=== PATIENT | female | born 1990 | race Caucasian/White ===

== ENCOUNTER 2021-03-26 13:51 | Emergency (ER) | payer OTHER, SELFPAY ==
[2021-03-26 14:19] VITALS: BP 131/85; PULSE 80; RESP 18; TEMP 36.6; O2SAT 100
[2021-03-26] MEDS: KETOROLAC (*BKC) 60 MG/2 ML VIAL IM (14:45)
[2021-03-26] MEDS: HYDROcodone/acetaminophen (*CRX) 7.5-325 MG TABLET 1 TAB PO (14:46)
[2021-03-26] MEDS: diazePAM (*CRX) 5 MG TABLET 2.5 MG PO (14:46)
--- NOTE | 2021-03-26 15:16 | ED.GENADULT ---
HPI - General Adult General Chief complaint: Neck Pain/Injury <Deyvi Orlando PA-C - Last Filed: 03/26/21 15:23> Stated complaint: neck pain <Deyvi Orlando PA-C - Last Filed: 03/26/21 15:23> Time Seen by Provider: 03/26/21 14:27 <Deyvi Orlando PA-C - Last Filed: 03/26/21 15:23> Source: patient and RN notes reviewed <Deyvi Orlando PA-C - Last Filed: 03/26/21 15:23> Mode of arrival: ambulatory <Deyvi Orlando PA-C - Last Filed: 03/26/21 15:23> Limitations: no limitations <Deyvi Orlando PA-C - Last Filed: 03/26/21 15:23> History of Present Illness HPI narrative: Patient is a 30-year-old female who presents to emergency department for evaluation of mid upper thoracic back pain that does not radiate is worse with activity or movement she denies any injury or trauma radicular symptoms or paresthesias woke with the pain this morning does not take anything for symptoms presents nondistressed. <Deyvi Orlando PA-C - Last Filed: 03/26/21 15:23> Related Data Allergies/adverse reactions: Allergies Allergy/AdvReac Type Severity Reaction Status Date / Time No Known Allergies Allergy Verified 03/26/21 14:32 <Deyvi Orlando PA-C - Last Filed: 03/26/21 15:23> Review of Systems Review of Systems: All systems reviewed & are unremarkable except as noted in HPI and below <Deyvi Orlando PA-C - Last Filed: 03/26/21 15:23> [facility] Social History Social History: Social History (Updated 03/26/21 @ 15:18 by Deyvi Orlando PA-C) Smoking status: Never smoker <Deyvi Orlando PA-C - Last Filed: 03/26/21 15:23> Exam Narrative: GENERAL: Well-appearing, well-nourished, uncomfortable and in no acute distress. HEAD: Normocephalic, atraumatic. EYES: PERRLA and EOMI. ENT: Nares clear, no rhinorrhea or epistaxis. Mucous membranes moist. NECK: Supple. No adenopathy or masses. CHEST: Clear to auscultation. No respiratory distress. No wheezes rales or rhonchi HEART: Regular rate and rhythm. No murmur heard. Normal peripheral pulses. EXTREMITIES: Normal range of motion. No edema. Midline thoracic tenderness in the upper segments of the thoracic spine there is no cervical tenderness no deformities noted SKIN: Warm, dry, no rash. NEURO: No focal deficits. Alert and oriented x3. Cranial nerves II through XII grossly intact. Normal speech and gait. Motor and sensory intact and symmetrical in the extremities PSYCH: Normal mood and affect. 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 given medications in the emergency department felt appropriate for outpatient reevaluation given reasons to return ABCs and vital signs intact and stable <RACHELLE Galindo Last Filed: 03/26/21 15:23> Vital Signs Vital signs: Vital Signs Temperature 98 F 03/26/21 14:19 Pulse Rate 80 03/26/21 14:19 Respiratory Rate 18 03/26/21 14:19 Blood Pressure 131/85 03/26/21 14:19 Pulse Oximetry 100 03/26/21 14:19 Temperature 98 F 03/26/21 14:19 Pulse Rate 80 03/26/21 14:19 Respiratory Rate 18 03/26/21 14:19 Blood Pressure 131/85 03/26/21 14:19 Pulse Oximetry 100 03/26/21 14:19 <RACHELLE Galindo Last Filed: 03/26/21 15:23> Medical Decision Making MDM Narrative Medical decision making narrative: Patients injury or pain is consistent with musculoskeletal etiology. No signs of neurological or vascular compromise or focal neurologic deficits on exam. Compartments and tisues are soft without signs of compartment syndrome. Pain is felt appropriate for further evaluation on an outpatient basis. <RACHELLE Galindo Last Filed: 03/26/21 15:23> Vital Signs Vital Signs: Vital Signs Temperature 98 F 03/26/21 14:19 Pulse Rate 80 03/26/21 14:19 Respiratory Rate 18 03/26/21 1
== END 2021-03-26 15:36 | disposition home or self-care (01) ==
PROVIDERS: Emergency Provider General Practice
DX: G24.3 Spasmodic torticollis (principal)
CPT/HCPCS: 96372; 99283; A9270; J1885

== ENCOUNTER 2021-03-26 17:17 | Emergency (ER) | payer OTHER, SELFPAY ==
--- NOTE | 2021-03-26 17:36 | PC.NURSE ---
pt feeling better and wants to go home. no distress or c/o. 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
== END 2021-03-26 17:36 | disposition left against medical advice (07) ==
DX: Z53.21 Procedure and treatment not carried out due to patient leaving prior to being seen by health care provider (principal)
CPT/HCPCS: 99199

== ENCOUNTER 2021-08-07 14:24 | Emergency (ER) | payer OTHER, SELFPAY ==
--- NOTE | 2021-08-07 15:04 | ED.GENADULT ---
HPI - General Adult General Chief complaint: Upper Respiratory Infection Stated complaint: Rash in mouth Source: patient Mode of arrival: ambulatory Limitations: no limitations History of Present Illness HPI narrative: Patient presents for evaluation of abnormal appearance to the hard palate and tissue beneath her tongue since yesterday. She states symptoms started after she consumed a carbonated green tea. She denies any associated pain. No hx of similar symptoms. She is in a new sexual relationship and they had their first sexual encounter on 07/30/21. She indicates that the encounter included kissing and protected receptive vaginal intercourse. She did not engage in any oral intercourse. 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 She has not tried any therapies to assist with her symptoms. She has felt increasingly fatigued as of late but states she has not been sleeping well and has been stressed while she is looking to purchase a home. No sore throat, otalgia, hearing loss, tinnitus, fever, chills, nausea or vomiting. No additional complaints or concerns. Related Data Allergies Allergy/AdvReac Type Severity Reaction Status Date / Time No Known Allergies Allergy Verified 08/07/21 14:32 Review of Systems Review of Systems: CONSTITUTIONAL: Denies fever, chills, or sweats. EYES: Denies visual changes, redness, or discharge. ENT: Reports abnormal appearance of oral mucosa. Denies rhinorrhea, congestion, sore throat, or otalgia. CARDIOVASCULAR: Denies chest pain, palpitations, or edema. RESPIRATORY: Denies cough or dyspnea. GASTROINTESTINAL: Denies abdominal pain, nausea, vomiting, or diarrhea. GENITOURINARY: Denies dysuria or hematuria. SKIN: Denies rash or itching. MUSCULOSKELETAL: Denies back pain, joint pain, or myalgia. NEUROLOGIC: Denies headache, numbness, dizziness, or weakness. PSYCHIATRIC: Denies anxiety or depression. [facility] Past Medical History Medical History History of ectopic No pertinent past medical history Family History Family History Mother No pertinent family history Social History Social History Smoking status: Never smoker Substance use: never Living arrangements: with family Gender identity (if verbalized by the patient): Female Sexual Orientation (if Verbalized by the Patient): Straight or Heterosexual Spiritual care concerns: No Exam Narrative: GENERAL: Well-appearing, well-nourished, and in no acute distress. HEAD: Normocephalic, atraumatic. EYES: PERRLA and EOMI. ENT: Nares clear, no rhinorrhea or epistaxis. Mucous membranes moist. Oropharynx without tonsillar hypertrophy exudate or other lesions. Erythema and patchy distribution to hard palate and mucosa surrounding the tongue that has a petechiae appearance. Bilateral TMs pearly ramos nonbulging NECK: Supple. No adenopathy or masses. No carotid bruits or JVD CHEST: Clear to auscultation. No respiratory distress. No wheezes rales or rhonchi HEART: Regular rate and rhythm. No murmur heard. Normal peripheral pulses. ABDOMEN: Soft, nontender, nondistended, normal active bowel sounds. EXTREMITIES: Normal range of motion. No edema. SKIN: Warm, dry, no rash. NEURO: No focal deficits. Alert and oriented x3. PSYCH: Normal mood and affect. Course Course Emergency Course: This is a 30-year-old female who presented with abnormal appearance of oral mucosa. Stearns was obtained due to reported fatigue and was negative. Strep negative. Declined Covid swab. HSV culture obtained. Will DC with triamcinolone dental paste. Advised not to use this until HSV swab results as negative as steroids could exacerbate symptoms. If she has persistent symptoms, she should follow up w
== END 2021-08-07 15:37 | disposition home or self-care (01) ==
PROVIDERS: Emergency Provider Nurse Practitioner
DX: K13.70 Unspecified lesions of oral mucosa (principal)
CPT/HCPCS: 36416; 86308; 87081; 87255; 87880; 99213; G0463

== ENCOUNTER 2022-01-02 09:36 | Emergency (ER) | payer OTHER, SELFPAY ==
[2022-01-02 09:49] VITALS: BP 122/71; PULSE 97; RESP 16; TEMP 36.6; O2SAT 100
--- NOTE | 2022-01-02 10:09 | ECG_ITS ---
Measurements Intervals [place] Rate: 70 P: 19 ME: 153 QRS: 65 QRSD: 105 T: 36 QT: 365 QTc: 394 Interpretive Statements SINUS RHYTHM WITH SINUS ARRHYTHMIA INCOMPLETE RIGHT BUNDLE BRANCH BLOCK NONSPECIFIC T-WAVE ABNORMALITY Electronically Signed On 01-04-2022 11:28:56 CDT by Cliff Serrano M.D.
--- NOTE | 2022-01-02 10:19 | ED.GENADULT ---
HPI - General Adult General Chief complaint: Unspecified Stated complaint: unspecified Time Seen by Provider: 01/02/22 09:38 Source: patient Mode of arrival: ambulatory Limitations: no limitations History of Present Illness HPI narrative: Ms. Piña is a 31-year-old female patient presenting to the clinic today with complaints of palpitations and mild left ear pressure. She reports that she went to work this morning and around 915 this morning she developed some light chest pressure and palpitations to the right side of her chest that was very brief. She reports that the symptoms have resolved at this time but she came in to be evaluated. She has a history of anxiety and is under a lot of stress at this current time. She denies any shortness of breath or chest pain currently. States that she had mild lightheadedness however that has also resolved. She has not taking any new medications. Related Data Home Medications Medication Instructions Recorded Confirmed No Home Medications 01/02/22 01/02/22 Allergies Allergy/AdvReac Type Severity Reaction Status Date / Time No Known Allergies Allergy Verified 08/07/21 14:32 Review of Systems Review of Systems: Pertinent positives per HPI. Patient denies any fever, chills, rash, headache, visual changes, cough, runny nose, sore throat, shortness of breath, nausea, vomiting, diarrhea, constipation, abdominal pain, or any urinary issues. PMFSH Past Medical History Medical History History of ectopic No pertinent past medical history Family History Family History Mother No pertinent family history Social History Social History Smoking status: Never smoker Substance use: never Gender identity (if verbalized by the patient): Female Sexual Orientation (if Verbalized by the Patient): Straight or Heterosexual Spiritual care concerns: No Comments At the time of my signature, I reviewed and agree with the nursing past medical, surgical, social, and family history. There is no relevant family history pertinent to the patient complaint. Exam Narrative: General: Well-developed, well nourished, in no apparent distress Head: Normocephalic, atraumatic Eyes: Pupils equally round and reactive to light bilaterally, EOM intact, sclera and conjunctive clear, no discharge, lids normal Ears: TMs intact and clear, right ear canal clear, left ear canal with cerumen impaction, no drainage, grossly hearing normal. Nose: Nares patent, no discharge, no inflammation, no sinus tenderness. Mouth: Oropharynx without lesions or masses, good dentition, MMM. Neck: Supple, trachea midline, no enlargement of anterior or posterior cervical nodes, no thyroid masses or goiter palpable, no carotid bruits or thrills Cardio: Regular rate and rhythm, s1 and s2 normal, no murmur appreciated. Resp: Clear to auscultation bilaterally anteriorly and posteriorly, no rhonchi, rales, wheezing or rubs Extremities: No deformity, no edema, no cyanosis, capillary refill less than 2 seconds, peripheral pulses palpable and strong. Integumentary: [place], warm, and dry, intact without lesion, no rashes. Course Course Emergency Course: Portions of this record may have been created with voice recognition software. Level of Care: Express Care Visit Vital Signs Vital signs: Vital Signs Temperature 36.6 C 01/02/22 09:49 Pulse Rate 97 01/02/22 09:49 Respiratory Rate 16 01/02/22 09:49 Blood Pressure 122/71 01/02/22 09:49 Pulse Oximetry 100 01/02/22 09:49 Oxygen Delivery Room Air 01/02/22 09:49 Temperature 36.6 C 01/02/22 09:49 Pulse Rate 97 01/02/22 09:49 Respiratory Rate 16 01/02/22 09:49 Blood Pressure 122/71 01/02/22 09:49 Pulse Oximetry 100 01/02/22 09:49 Oxygen Delivery R
--- NOTE | 2022-01-02 10:40 | PC.NURSE ---
1030 nurse special in to do ear irrigation
== END 2022-01-02 11:22 | disposition home or self-care (01) ==
PROVIDERS: Emergency Provider Nurse Practitioner Family
DX: R00.2 Palpitations (principal); H61.22 Impacted cerumen, left ear
CPT/HCPCS: 69210; 93005; 99213; G0463

== ENCOUNTER 2022-01-25 08:45 | Emergency (ER) | payer OTHER, SELFPAY ==
[2022-01-25 08:52] VITALS: BP 120/82; PULSE 94; RESP 16; TEMP 36.8; O2SAT 100
--- NOTE | 2022-01-25 09:02 | ED.EAR ---
HPI - Ear Problem General Chief complaint: Ear Stated complaint: EARACHE Time Seen by Provider: 01/25/22 09:03 Source: patient, RN notes reviewed and old records reviewed Mode of arrival: ambulatory Limitations: no limitations History of Present Illness HPI Narrative: 31-year-old female who presents to [facility] with pain and irritation to her left ear.. Patient reports that her left ear has been itching for the past 2 days and she thinks that she scratched the inside of her ear with pain noted to her left ear this morning. Patient reports that she has hearing loss to her left ear and she wears a hearing aide to that ear. Patient reports that she had left ear irrigation for cerumen impaction on the 02 of January and they said there was a little irritation in ear canal at that time. Patient reports that she has some discomfort from her ear down into her neck. Patient denies any fevers chills or sweats, no nasal discharge or any other ill symptoms. MD Complaint: ear pain Location: left ear Severity: mild Discharge from ear: Reports no Related Data Allergies Allergy/AdvReac Type Severity Reaction Status Date / Time No Known Allergies Allergy Verified 08/07/21 14:32 Review of Systems Review of Systems: CONSTITUTIONAL: Denies fever, chills, or sweats. EYES: Denies visual changes, redness, or discharge. ENT: Denies rhinorrhea, congestion, sore throat,Positive for left ear otalgia. CARDIOVASCULAR: Denies chest pain, palpitations, or edema. RESPIRATORY: Denies cough or dyspnea. GASTROINTESTINAL: Denies abdominal pain, nausea, vomiting, or diarrhea. GENITOURINARY: Denies dysuria or hematuria. SKIN: Denies rash or itching. MUSCULOSKELETAL: Denies back pain, joint pain, or myalgia. NEUROLOGIC: Denies headache, numbness, or weakness. PSYCHIATRIC: Denies anxiety or depression. All systems reviewed & are unremarkable except as noted in HPI and below PMFSH Past Medical History Medical History (Updated 01/25/22 @ 10:48 by Krystle Shultz NP) History of ectopic No pertinent past medical history Surgical History Surgical History (Updated 01/25/22 @ 10:48 by Krystle Shultz NP) History of salpingectomy right ectopic Previous section Family History Family History Mother No pertinent family history Social History Social History Smoking status: Never smoker Substance use: never Gender identity (if verbalized by the patient): Female Sexual Orientation (if Verbalized by the Patient): Straight or Heterosexual Spiritual care concerns: No Comments At time of signature, agree with nursing past medical, surgical, social and family history. There is no relevant family history pertinent to the presenting complaint Exam Narrative: GENERAL: Well-appearing, well-nourished, and in no acute distress. HEAD: Normocephalic, atraumatic. EYES: PERRLA and EOMI. ENT: Nares clear, no rhinorrhea or epistaxis. Mucous membranes moist.TM's pearly white with good light reflex, left ear canal is reddened with some excoriation and swelling no drainage noted, throat pink with no lesions or exudates or tonsil swelling. NECK: Supple.no lymphadenopathy CHEST: Clear to auscultation. No respiratory distress.SAO2 100% on room air HEART: Regular rate and rhythm. No murmur heard. Normal peripheral pulses. ABDOMEN: Soft, nontender, nondistended, normal active bowel sounds. EXTREMITIES: Normal range of motion. No edema. SKIN: Warm, dry, no rash. NEURO: No focal deficits. Alert and oriented x3. Course Course Level of Care: Express Care Visit Vital Signs Vital signs: Vital Signs Temperature 36.8 C 01/25/22 08:52 Pulse Rate 94 01/25/22 08:52 Respiratory Rate 16 01/25/22 08:52 Blood Pressure 120/82 01/25/22 08:52 Pulse Oximetry 100 01/25/22 08:52 Temperature 36.8 C 01/25/22 08:52 Pu
== END 2022-01-25 09:15 | disposition home or self-care (01) ==
PROVIDERS: Emergency Provider Registered Nurse; PCP Family Medicine
DX: H60.92 Unspecified otitis externa, left ear (principal)
CPT/HCPCS: 99213; G0463

== ENCOUNTER 2022-07-25 11:54 | Emergency (ER) | payer OTHER, SELFPAY ==
[2022-07-25 12:03] VITALS: BP 121/74; PULSE 89; RESP 16; TEMP 36.6; O2SAT 100
--- NOTE | 2022-07-25 12:09 | ED.EAR ---
HPI - Ear Problem General Chief complaint: Ear Stated complaint: itchy ears Time Seen by Provider: 07/25/22 12:10 Source: patient and RN notes reviewed Mode of arrival: ambulatory Limitations: no limitations History of Present Illness HPI Narrative: 31-year-old female presents with concern for bilateral ear itchiness. Reports she tried debrox without relief. She denies pain, purulent drainage. She denies decreased hearing. MD Complaint: other (Ear itchiness) Related Data Home Medications Medication Instructions Recorded Confirmed No Home Medications 07/25/22 07/25/22 Allergies Allergy/AdvReac Type Severity Reaction Status Date / Time No Known Allergies Allergy Verified 07/25/22 12:01 Review of Systems Review of Systems: CONSTITUTIONAL: Denies malaise, chills, sweats, or fever. EYES: Denies visual changes, redness, or discharge. ENT: Denies rhinorrhea, congestion, sinus pain, and sore throat. Reports ear itchiness without pain RESPIRATORY: Denies cough. Denies dyspnea. SKIN: Denies rash MUSCULOSKELETAL: Denies myalgia. NEUROLOGIC: Denies headache. All systems reviewed & are unremarkable except as noted in HPI and below PMFSH Past Medical History Medical History (Updated 07/25/22 @ 12:24 by Eduarda Monte NP) History of ectopic No pertinent past medical history Surgical History Surgical History (Updated 01/25/22 @ 10:48 by Krystle Shultz NP) History of salpingectomy right ectopic Previous section Family History Family History Mother No pertinent family history Social History Social History Smoking status: Never smoker Substance use: never Living arrangements: with family Gender identity (if verbalized by the patient): Female Sexual Orientation (if Verbalized by the Patient): Straight or Heterosexual Spiritual care concerns: No Comments At time of signature, agree with nursing past medical, surgical, social and family history. There is no relevant family history pertinent to the presenting complaint Exam Narrative: GENERAL: Well-appearing, well-nourished, and in no acute distress. HEAD: Normocephalic EYES: PERRLA, conjunctivae clear ENT: Nares clear, no discharge. Mucous membranes moist. TM pearly ramos with sharp light reflex bilaterally, excessive cerumen noted to the right EAC; no EAC abnormality or tragal tenderness. Oropharynx not erythematous without lesions. Tonsils not enlarged and without exudate, no drooling, no hoarseness, no trismus, uvula midline. NECK: Supple. No lymphadenopathy CHEST: Clear to auscultation, breath sounds equal. No wheezing, rhonchi, rales, or stridor. No respiratory distress, speaks in full sentences. HEART: Regular rate and rhythm. No murmur heard. SKIN: Warm, dry, no rash. NEURO: Alert and oriented x3. PSYCH: Normal mood and affect Course Course Emergency Course: Patient is aware of diagnosis, understands and agrees to treatment plan. Anticipatory guidance given. Patient agrees to follow-up as directed and is aware of reasons to seek care at the emergency department. Portions of this record may have been created with voice recognition software Level of Care: Express Care Visit Vital Signs Vital signs: Vital Signs Temperature 97.9 F 07/25/22 12:03 Pulse Rate 89 07/25/22 12:03 Respiratory Rate 16 07/25/22 12:03 Blood Pressure 121/74 07/25/22 12:03 Pulse Oximetry 100 07/25/22 12:03 Temperature 97.9 F 07/25/22 12:03 Pulse Rate 89 07/25/22 12:03 Respiratory Rate 16 07/25/22 12:03 Blood Pressure 121/74 07/25/22 12:03 Pulse Oximetry 100 07/25/22 12:03 Reviewed. Procedures Ear Wax Removal Right Ear: Ear Wax Removal Date: 07/25/22 Ear Wax Removal Time: 12:15 Results: Re-examined: cerumen removed completely TM Examination: TM(s) in
== END 2022-07-25 12:27 | disposition home or self-care (01) ==
PROVIDERS: Emergency Provider Nurse Practitioner
DX: H93.8X3 Other specified disorders of ear, bilateral (principal); H61.21 Impacted cerumen, right ear
CPT/HCPCS: 69210; 99212; G0463

== ENCOUNTER 2022-09-13 10:55 | Emergency (ER) | payer OTHER, SELFPAY ==
--- NOTE | 2022-09-13 11:01 | ED.URI ---
HPI - URI/Sore Throat General Chief Complaint: Upper Respiratory Infection Stated Complaint: lt ear pain, sore throat,sinus congestion Time Seen by Provider: 09/13/22 11:29 Source: patient and RN notes reviewed Mode of arrival: ambulatory Limitations: no limitations History of Present Illness HPI Narrative: 31-year-old female presents concern for 2 day history of left ear pain, sore throat, sinus congestion. She denies fever, aches, chills, sweats, cough. Denies taking any medications for her symptoms MD elicited complaint: sore throat and rhinorrhea Related Data Allergies Allergy/AdvReac Type Severity Reaction Status Date / Time No Known Allergies Allergy Verified 09/13/22 11:14 Review of Systems Review of Systems: CONSTITUTIONAL: Denies malaise, chills, sweats, or fever. EYES: Denies visual changes, redness, or discharge. ENT: Reports rhinorrhea, congestion, otalgia and sore throat. CARDIOVASCULAR: Denies chest pain, palpitations, or edema. RESPIRATORY: Denies cough. Denies dyspnea. GASTROINTESTINAL: Denies abdominal pain, nausea, vomiting, diarrhea SKIN: Denies rash or itching. MUSCULOSKELETAL: Denies myalgia. NEUROLOGIC: Denies headache. All systems reviewed & are unremarkable except as noted in HPI and below PMFSH Past Medical History Medical History (Updated 09/13/22 @ 11:49 by Eduarda Monte NP) History of ectopic No pertinent past medical history Surgical History Surgical History (Updated 01/25/22 @ 10:48 by Krystle Shultz NP) History of salpingectomy right ectopic Previous section Family History Family History Mother No pertinent family history Social History Social History Smoking status: Never smoker Substance use: never Living arrangements: with family Gender identity (if verbalized by the patient): Female Sexual Orientation (if Verbalized by the Patient): Straight or Heterosexual Spiritual care concerns: No Comments At time of signature, agree with nursing past medical, surgical, social and family history. There is no relevant family history pertinent to the presenting complaint Exam Narrative: GENERAL: Well-appearing, well-nourished, and in no acute distress. HEAD: Normocephalic EYES: PERRLA, conjunctivae clear ENT: Nares clear, clear discharge. Mucous membranes moist. TM pearly ramos with dull light reflex bilaterally; no tragal tenderness. Oropharynx not erythematous without lesions. Tonsils not enlarged and without exudate, no drooling, no hoarseness, no trismus, uvula midline. NECK: Supple. No lymphadenopathy CHEST: Clear to auscultation, breath sounds equal. No wheezing, rhonchi, rales, or stridor. No respiratory distress, speaks in full sentences. HEART: Regular rate and rhythm. No murmur heard. SKIN: Warm, dry, no rash. NEURO: Alert and oriented x3. PSYCH: Normal mood and affect Course Course Emergency Course: Patient is aware of diagnosis, understands and agrees to treatment plan. Anticipatory guidance given. Patient agrees to follow-up as directed and is aware of reasons to seek care at the emergency department. Portions of this record may have been created with voice recognition software Level of Care: Express Care Visit Vital Signs Vital signs: Reviewed. Patient has been instructed to follow up with her primary care provider within the next week regarding her elevated blood pressure today. MDM - URI/Sore Throat MDM Narrative Medical decision making narrative: Differential diagnosis considered: Sheehan virus, strep pharyngitis, allergic rhinitis, upper respiratory tract infection, sinusitis, rhinosinusitis, nasopharyngitis. viral pharyngitis, otitis media, otitis externa, pneumonia, bronchitis, viral cough syndrome, viral syndrome, and influenza. Exam findings show no acute concerns or changes; patient is non-toxic ap
[2022-09-13 11:11] VITALS: BP 125/87; PULSE 112; RESP 16; TEMP 36.9; O2SAT 100
== END 2022-09-13 11:54 | disposition home or self-care (01) ==
PROVIDERS: Emergency Provider Nurse Practitioner; PCP Family Medicine
DX: J30.9 Allergic rhinitis, unspecified (principal); H69.93 Unspecified Eustachian tube disorder, bilateral
CPT/HCPCS: 87081; 87880; 99213; G0463

== ENCOUNTER 2022-10-01 15:37 | Emergency (ER) | payer OTHER, SELFPAY ==
[2022-10-01 15:50] VITALS: BP 126/85; PULSE 113; RESP 18; TEMP 36.5; O2SAT 100
--- NOTE | 2022-10-01 16:00 | ED.FEMALEGU ---
HPI - Female Genitourinary General Chief complaint: Urogenital-Female Stated complaint: urinary Time Seen by Provider: 10/01/22 16:00 Source: patient, family, RN notes reviewed and old records reviewed Mode of arrival: ambulatory Limitations: no limitations History of Present Illness HPI Narrative: 31-year-old who [facility] with complaints pain after urinating starting this morning with some pelvic pain. Patient reports she has frequency, urgency with some pinkish tinge to her urine. she states she is suppose to start her menses either tomorrow or day after.. Patient reports no fevers, chills or sweats, denies any low back pain. Patient reports that they are leaving for [place] tomorrow and is concerned about travel with UTI. Patient reports that she drinks a lot of water daily and drinks a couple cups of coffee, no soda. Patient denies any vaginal discharge or any concern for STD exposure. MD elicited complaint: UTI Onset (ago): day(s) (today at 1000) Location of symptoms: urethra and other (pelvic) Severity scale (1-10): 2 Related Data Allergies Allergy/AdvReac Type Severity Reaction Status Date / Time No Known Allergies Allergy Verified 10/01/22 15:56 Review of Systems Review of Systems: CONSTITUTIONAL: Denies fever, chills, or sweats. CARDIOVASCULAR: Denies chest pain, palpitations, or edema. RESPIRATORY: Denies cough or dyspnea. GASTROINTESTINAL: Denies abdominal pain, nausea, vomiting, or diarrhea. GENITOURINARY: Reports dysuria, frequency, urgency. Denies flank pain positive pink tinged urine SKIN: Denies rash or itching. MUSCULOSKELETAL: Denies back pain or myalgia. Denies CVA tenderness NEUROLOGIC: Denies headache All systems reviewed & are unremarkable except as noted in HPI and below PMFSH Past Medical History Medical History (Updated 10/01/22 @ 16:30 by Krystle Shultz NP) Anxiety History of ectopic No pertinent past medical history Surgical History Surgical History (Updated 01/25/22 @ 10:48 by Krystle Shultz NP) History of salpingectomy right ectopic Previous section Family History Family History Mother No pertinent family history Social History Social History Smoking status: Never smoker Substance use: never Living arrangements: with family Gender identity (if verbalized by the patient): Female Sexual Orientation (if Verbalized by the Patient): Straight or Heterosexual Spiritual care concerns: No Comments At time of signature, agree with nursing past medical, surgical, social and family history. There is no relevant family history pertinent to the presenting complaint Exam Narrative: GENERAL: Well-appearing, well-nourished, and in no acute distress. HEAD: Normocephalic, atraumatic. NECK: Supple. no lymphadenopathy CHEST: Clear to auscultation. No respiratory distress. SAO2 100% on room air HEART: Regular rate and rhythm. No murmur heard. Normal peripheral pulses. ABDOMEN: Soft, nontender, nondistended, normal active bowel sounds. No CVA tenderness EXTREMITIES: Normal range of motion. No edema. SKIN: Warm, dry, no rash. NEURO: No focal deficits. Alert and oriented x3. Course Course Emergency Course: Patient is aware of diagnosis, understands and agrees to treatment plan.? Anticipatory guidance given.? Patient agrees to follow-up as directed and is aware of reasons to seek care at the emergency department. Portions of this record may have been created with voice recognition software Level of Care: [facility] Visit MDM - Female Genitourinary MDM Narrative Medical decision making narrative: Exam findings and UA show no acute concerns or changes; patient is non-toxic appearing and is in no distress.? Patient is appropriate for outpatient treatment and follow-up. Differential Diagnosis Differential
== END 2022-10-01 16:30 | disposition home or self-care (01) ==
PROVIDERS: Emergency Provider Registered Nurse; PCP Family Medicine
DX: N39.0 Urinary tract infection, site not specified (principal)
CPT/HCPCS: 81003; 81025; 87086; 99213; G0463

== ENCOUNTER 2023-07-01 13:32 | Emergency (ER) | payer OTHER, SELFPAY ==
[2023-07-01 13:46] VITALS: BP 113/80; PULSE 104; RESP 16; TEMP 37.1; O2SAT 100
[2023-07-01 13:48] VITALS: BP 113/80; PULSE 104; RESP 16; TEMP 37.1; O2SAT 100
--- NOTE | 2023-07-01 14:04 | ED.EAR ---
HPI - Ear Problem General Chief complaint: Ear Stated complaint: WANTS EARS CLEANED OUT Time Seen by Provider: 07/01/23 14:05 Source: patient and RN notes reviewed Mode of arrival: ambulatory Limitations: no limitations History of Present Illness HPI Narrative: 32-year-old female presents concern for left ear discomfort, ear wax impaction. Reports she tried to clean at home without relief. She uses noted scope camera and saw wax, she fears she push in further. MD Complaint: ear pain Related Data Home Medications Medication Instructions Recorded Confirmed No Home Medications 07/01/23 07/01/23 Allergies Allergy/AdvReac Type Severity Reaction Status Date / Time No Known Allergies Allergy Verified 07/01/23 13:47 Review of Systems Review of Systems: CONSTITUTIONAL: Denies malaise, chills, sweats, or fever. EYES: Denies visual changes, redness, or discharge. ENT: Denies rhinorrhea, congestion, sinus pain, and sore throat. Reports left ear pain CARDIOVASCULAR: Denies chest pain, palpitations, or edema. RESPIRATORY: Denies cough. Denies dyspnea. GASTROINTESTINAL: Denies abdominal pain, nausea, vomiting, diarrhea SKIN: Denies rash or itching. MUSCULOSKELETAL: Denies myalgia. NEUROLOGIC: Denies headache. All systems reviewed & are unremarkable except as noted in HPI and below PMFSH Past Medical History Medical History (Updated 07/01/23 @ 14:23 by Eduarda Monte NP) Anxiety History of ectopic No pertinent past medical history Surgical History Surgical History (Updated 01/25/22 @ 10:48 by Krystle Shultz NP) History of salpingectomy right ectopic Previous section Family History Family History Mother No pertinent family history Social History Social History Smoking status: Never smoker Substance use: never Living arrangements: with family Gender identity (if verbalized by the patient): Female Sexual Orientation (if Verbalized by the Patient): Straight or Heterosexual Spiritual care concerns: No Comments At time of signature, agree with nursing past medical, surgical, social and family history. There is no relevant family history pertinent to the presenting complaint Exam Narrative: GENERAL: Well-appearing, well-nourished, and in no acute distress. HEAD: Normocephalic EYES: PERRLA, conjunctivae clear ENT: Nares clear, turbinates edematous, clear discharge. Mucous membranes moist. Right tM pearly ramos with dull light reflex, left TM not visible due to cerumen impaction; no tragal tenderness. Oropharynx not erythematous without lesions. Tonsils not enlarged and without exudate, no drooling, no hoarseness, no trismus, uvula midline. NECK: Supple. No lymphadenopathy CHEST: Clear to auscultation, breath sounds equal. No wheezing, rhonchi, rales, or stridor. No respiratory distress, speaks in full sentences. HEART: Regular rate and rhythm. No murmur heard. SKIN: Warm, dry, no rash. NEURO: Alert and oriented x3. PSYCH: Normal mood and affect Course Course Emergency Course: Patient is aware of diagnosis, understands and agrees to treatment plan. Anticipatory guidance given. Patient agrees to follow-up as directed and is aware of reasons to seek care at the emergency department. Portions of this record may have been created with voice recognition software Level of Care: [facility] Visit Vital Signs Vital signs: Vital Signs Temperature 98.8 F 07/01/23 13:46 Pulse Rate 104 H 07/01/23 13:46 Respiratory Rate 16 07/01/23 13:46 Blood Pressure 113/80 07/01/23 13:46 Pulse Oximetry 100 07/01/23 13:46 Temperature 98.8 F 07/01/23 13:48 Pulse Rate 104 H 07/01/23 13:48 Respiratory Rate 16 07/01/23 13:48 Blood Pressure 113/80 07/01/23 13:48 Pulse Oximetry 100 07/01/23 13:48 Reviewed. Procedures Ear Wax
== END 2023-07-01 14:29 | disposition home or self-care (01) ==
PROVIDERS: Emergency Provider Nurse Practitioner; PCP Family Medicine
DX: H61.22 Impacted cerumen, left ear (principal)
CPT/HCPCS: 69210; 99212; A9270; G0463

== ENCOUNTER 2023-08-12 12:29 | Emergency (ER) | payer OTHER, SELFPAY ==
--- NOTE | 2023-08-12 12:54 | ED.NAVMDI ---
HPI - Nausea/Vomiting/Diarrhea General Chief complaint: Nausea/Vomiting/Diarrhea Stated complaint: headache, n/v Time Seen by Provider: 08/12/23 12:53 Source: patient Mode of arrival: ambulatory Limitations: no limitations History of Present Illness HPI Narrative: 32 yo female presents with complaint of nausea/vomiting and a headache. Last night she went out with a friend and had 2 or 3 drinks. She normally doesn't drink much but felt off and was having difficulty walking and can't recall whether it was 2 or 3. This was concerning to her so she went into a bathroom and called her to pick her up. Her friend had the same experience. She denies any fevers. She has had multiple bowel movements. Tried eating bread and pedialyte and a banana and water but continues to feel unwell. No abdominal pain. Concerned for dehydration as she states she doesn't know if she has urinated today, possibly once. Concerned about the degree she is confused/can't remember. Currently started menstrating and has heavy menses. No falls. Unsure if drinks were stronger than usual, something was put into drinks, or something else going on. Related Data Allergies Allergy/AdvReac Type Severity Reaction Status Date / Time No Known Allergies Allergy Verified 08/12/23 13:14 [facility] Past Medical History Medical History (Updated 08/13/23 @ 10:52 by Marian Willett MD) Anxiety History of ectopic No pertinent past medical history Scoliosis Surgical History Surgical History History of salpingectomy right ectopic Previous section Family History Family History Mother No pertinent family history Social History Social History (Updated 08/13/23 @ 10:47 by Marian Willett MD) Smoking status: Never smoker Alcohol intake: current Alcohol use details: occasional Substance use: never Living arrangements: with family Additional living arrangements comments: Gender identity (if verbalized by the patient): Female Sexual Orientation (if Verbalized by the Patient): Straight or Heterosexual Spiritual care concerns: No Exam Narrative: GENERAL: well-nourished, and in no acute distress though appears to not feel well. HEAD: Normocephalic, atraumatic. EYES: Non injected, non icteric ENT: Nares clear, no rhinorrhea or epistaxis. Tacky mucous membranes NECK: Supple. CHEST: Speaking in full sentences. No respiratory distress. HEART: Regular rate and rhythm. . ABDOMEN: Soft, nondistended. EXTREMITIES: Normal range of motion. No edema. SKIN: Warm, dry, no rash. NEURO: No focal deficits. Alert and oriented x3. PSYCH: Normal mood and affect. Course Vital Signs Vital signs: Vital Signs Temperature 97.8 F 08/12/23 13:14 Pulse Rate 101 H 08/12/23 13:14 Respiratory Rate 17 08/12/23 13:14 Blood Pressure 125/83 08/12/23 13:14 Pulse Oximetry 100 08/12/23 13:14 Temperature 98.0 F 08/12/23 16:06 Pulse Rate 93 08/12/23 16:06 Respiratory Rate 18 08/12/23 16:06 Blood Pressure 107/69 08/12/23 16:06 Pulse Oximetry 100 08/12/23 16:06 MDM - Nausea/Vomiting/Diarrhea MDM Narrative Medical decision making narrative: Patient presents with nausea, vomiting, several bowel movements , and a headache. Had 2 or possibly 3 drinks last night. Only occasional alcohol use at baseline. [place] and had difficulty walking so picked her up. She is concerned this is either the effects of alcohol, possibly exposure to something else, related to heavy menses, or something else. In the ED she is afebrile with VS that show mild tachycardia. We will obtain labs, give IV fluids, anti-emetic, and analgesia for headache. patient asked about testing for some poisoning. We did discuss the fact that I could obtain an alcohol level although patient does not clini
[2023-08-12 13:14] VITALS: BP 125/83; PULSE 101; RESP 17; TEMP 36.6; O2SAT 100
[2023-08-12 13:18] LABS: Basophils Percent Auto 0.4 % (0.2-1.2); Hematocrit 39.6 % (37.0-47.0); Hemoglobin 13.8 g/dL (12.0-15.0); Immature Granulocyte Absolute 0.02 K/mm3 (0.00-0.031); Immature Granulocyte Percent A 0.2 % (0-0.5); Lymphocytes Absolute Auto 0.71 K/mm3 (0.9-3.2); Lymphocytes Percent Auto 6.8 % (18.3-44.2); Mean Corpuscular HGB Conc 34.8 g/dl (32-36); Mean Corpuscular Hemoglobin 31.7 pg (26-34); Mean Corpuscular Volume 90.8 fl (80-100); Mean Platelet Volume 9.3 fl (7.4-10.4); Monocytes Absolute Auto 0.3 K/mm3 (0.1-0.6); Monocytes Percent Auto 3.1 % (2.6-8.5); Neutrophils Absolute Auto 9.4 K/mm3 (1.3-6.7); Neutrophils Percent Auto 89.5 % (45.5-73.1); Platelet Count Result 269 k/mm3 (150-375); Red Blood Count 4.36 M/mm3 (4.2-5.4); Red Cell Distribution Width 11.4 % (11.5-14.5); White Blood Count 10.5 K/mm3 (4.5-10.0)
[2023-08-12 13:26] LABS: Appearance Urine Clear (Clear); Bacteria Urine None Seen /hpf; Bilirubin Urine Negative (Negative); Blood Urine 2+ (Negative); Color Urine Yellow (Yellow); Glucose Urine UA Negative (Negative); Ketones Urine Negative (Negative); Leukocyte Esterase Ur Trace LEU/UL (Negative); Nitrate Urine Negative (Negative); Non Pathogenic Casts 0-2; Protein Urine 1+ mg/dL (Negative); RBC Urine 0-2 /hpf (0-2); Specific Grav Ur 1.019 (1.001-1.035); Squamous Epithelial Cell Urine None seen /hpf (Few); Urobilinogen Urine 0.2 mg/dL (<2.0); WBC Urine 0-5 /hpf; pH Urine >=9.0 (5.0-9.0)
[2023-08-12] MEDS: SODIUM CHLORIDE 0.9% IV 1,000 ML 999 ML IV CONT (13:27)
[2023-08-12] MEDS: ONDANSETRON INJ 4 MG/2 ML VIAL IV PUSH (13:27)
[2023-08-12 13:28] LABS: Add Urine Microscopic? YES
[2023-08-12 13:28] LABS: Alanine Aminotransferase 26 U/L (6-35); Albumin Level 4.7 g/dL (3.5-5.1); Alkaline Phosphatase 62 U/L (38-126); Anion Gap 4 mmol/L (8-16); Aspartate Amino Transferase 30 U/L (14-36); Bilirubin,Total 1.1 mg/dL (0.2-1.3); Blood Urea Nitrogen 8 mg/dL (7-17); Calcium 9.1 mg/dL (8.4-10.2); Carbon Dioxide 29 mmol/L (22-30); Chloride 107 mmol/L (98-107); Estimated CRCL calculation 98 ml/min; Estimated Glomerular Filt Rate > 60; Glucose 108 mg/dL (65-110); Lipase 92 U/L (23-300); Potassium 3.6 mmol/L (3.4-5.0); Sodium 140 mmol/L (137-145)
[2023-08-12] MEDS: ACETAMINOPHEN 325 MG TABLET 650 MG PO (13:39)
[2023-08-12 14:05] LABS: Influenza A QL RT-PCR Negative (Negative); Influenza B QL RT-PCR Negative (Negative); SARS-CoV-2 RNA PCR Negative (Negative)
[2023-08-12 14:40] VITALS: BP 113/68; PULSE 100; RESP 16; TEMP 36.4; O2SAT 100
[2023-08-12] MEDS: IBUPROFEN 600 MG TABLET PO (15:46)
[2023-08-12 15:47] VITALS: BP 128/76; PULSE 98; RESP 17; TEMP 36.4; O2SAT 100
[2023-08-12 16:06] VITALS: BP 107/69; PULSE 93; RESP 18; TEMP 36.7; O2SAT 100
== END 2023-08-12 16:08 | disposition home or self-care (01) ==
PROVIDERS: Emergency Provider Student in an Organized Health Care Education/Training Program; PCP Family Medicine
DX: R11.2 Nausea with vomiting, unspecified (principal); R51.9 Headache, unspecified; Z20.822 Contact with and (suspected) exposure to COVID-19
CPT/HCPCS: 36415; 80053; 81001; 81025; 83690; 83735; 85025; 87636; 96361; 96374; 99284; A9270; J2405; J7030

== ENCOUNTER 2024-01-06 10:52 | Emergency (ER) | payer SELFPAY ==
[2024-01-06 10:58] VITALS: BP 123/87; PULSE 96; RESP 16; TEMP 37.1; O2SAT 100
--- NOTE | 2024-01-06 11:01 | ED.EAR ---
HPI - Ear Problem General Chief complaint: Ear Stated complaint: Ear Pain Time Seen by Provider: 01/06/24 11:32 Source: patient and RN notes reviewed Mode of arrival: ambulatory Limitations: no limitations History of Present Illness HPI Narrative: 33-year-old female presents concern for ear wax buildup in her right ear. She reports she has been using peroxide to try to clean it out without relief. She reports she has some discomfort. She denies drainage from the ear. She reports decreased hearing. MD Complaint: ear pain Related Data Home Medications Medication Instructions Recorded Confirmed No Home Medications 01/06/24 01/06/24 Allergies Allergy/AdvReac Type Severity Reaction Status Date / Time No Known Allergies Allergy Verified 01/06/24 10:58 Review of Systems Review of Systems: CONSTITUTIONAL: Denies malaise, chills, sweats, or fever. EYES: Denies visual changes, redness, or discharge. ENT: Denies rhinorrhea, congestion, sinus pain, and sore throat. Reports right ear discomfort CARDIOVASCULAR: Denies chest pain, palpitations, or edema. RESPIRATORY: Denies cough. Denies dyspnea. GASTROINTESTINAL: Denies abdominal pain, nausea, vomiting, diarrhea SKIN: Denies rash or itching. MUSCULOSKELETAL: Denies myalgia. NEUROLOGIC: Denies headache. All systems reviewed & are unremarkable except as noted in HPI and below PMFSH Past Medical History Medical History (Updated 01/06/24 @ 11:46 by Eduarda Monte NP) Anxiety History of ectopic No pertinent past medical history Scoliosis Surgical History Surgical History History of salpingectomy right ectopic Previous section Family History Family History Mother No pertinent family history Social History Social History (Updated 08/13/23 @ 10:47 by Marian Willett MD) Smoking status: Never smoker Alcohol intake: current Alcohol use details: occasional Substance use: never Living arrangements: with family Additional living arrangements comments: Gender identity (if verbalized by the patient): Female Sexual Orientation (if Verbalized by the Patient): Straight or Heterosexual Spiritual care concerns: No Comments At time of signature, agree with nursing past medical, surgical, social and family history. There is no relevant family history pertinent to the presenting complaint Exam Narrative: GENERAL: Well-appearing, well-nourished, and in no acute distress. HEAD: Normocephalic EYES: PERRLA, conjunctivae clear ENT: Nares clear. Mucous membranes moist. Left TM pearly ramos with sharp light reflex, right TM not visible due to excess cerumen; no tragal tenderness. NECK: Supple. No lymphadenopathy CHEST: Clear to auscultation, breath sounds equal. No wheezing, rhonchi, rales, or stridor. No respiratory distress, speaks in full sentences. HEART: Regular rate and rhythm. No murmur heard. SKIN: Warm, dry, no rash. NEURO: Alert and oriented x3. PSYCH: Normal mood and affect Course Course Emergency Course: Patient is aware of diagnosis, understands and agrees to treatment plan. Anticipatory guidance given. Patient agrees to follow-up as directed and is aware of reasons to seek care at the emergency department. Portions of this record may have been created with voice recognition software Level of Care: [facility] Visit Vital Signs Vital signs: Vital Signs Temperature 98.7 F 01/06/24 10:58 Pulse Rate 96 01/06/24 10:58 Respiratory Rate 16 01/06/24 10:58 Blood Pressure 123/87 01/06/24 10:58 Pulse Oximetry 100 01/06/24 10:58 Temperature 98.7 F 01/06/24 10:58 Pulse Rate 96 01/06/24 10:58 Respiratory Rate 16 01/06/24 10:58 Blood Pressure 123/87 01/06/24 10:58 Pulse Oximetry 100 01/06/24 10:58 Reviewed. Procedures Ear Wax Removal Ri
== END 2024-01-06 11:57 | disposition home or self-care (01) ==
PROVIDERS: Emergency Provider Nurse Practitioner
DX: H61.21 Impacted cerumen, right ear (principal); M41.9 Scoliosis, unspecified
CPT/HCPCS: 69210; 99212; G0463

== ENCOUNTER 2024-02-20 17:12 | Emergency (ER) | payer SELFPAY ==
--- NOTE | 2024-02-20 17:26 | ED.GENADULT ---
HPI - General Adult General Chief complaint: Urogenital-Female Stated complaint: IRRITATION Time Seen by Provider: 02/20/24 17:26 Source: patient, RN notes reviewed and old records reviewed Mode of arrival: ambulatory Limitations: no limitations History of Present Illness HPI narrative: 33-year-old female to [facility] for complaint of irritation to perineal area for 2 days. Patient states that she went for a 10 mi bike ride today prior the 1st time in a very long time. Patient believes that her bike ride may have caused irritation. patient states that she has also recently changed her laundry detergent. Patient anxious an exam room, states that she has become sexually active with a new partner over the past couple months and is concerned for STI. Patient denies vaginal discharge, urinary complaints, bowel changes, injury, allergies, pertinent medical history. Patient has not attempted to treat at home. LMP 2 weeks ago. Respirations even and nonlabored. Patient in no acute distress. Related Data Home Medications Medication Instructions Recorded Confirmed No Home Medications 01/06/24 02/20/24 Allergies Allergy/AdvReac Type Severity Reaction Status Date / Time No Known Allergies Allergy Verified 02/20/24 18:25 Review of Systems Review of Systems: All systems reviewed & are unremarkable except as noted in HPI and below Constitutional: Constitutional: Reports no additional constitutional complaints Eyes: Eyes: Reports no additional eye complaints ENT: Reports system reviewed and no additional complaints, except as documented Cardiovascular: Cardiovascular: Reports no additional cardiovascular complaints, Denies chest pain and Denies dyspnea Respiratory: Respiratory: Reports no additional respiratory complaints, Denies cough and Denies dyspnea Genitourinary: Genitourinary: Reports other ( Vaginal irritation) Musculoskeletal: Musculoskeletal: Reports no additional musculoskeletal complaints Neurologic: Reports system reviewed and no additional complaints, except as documented Psychiatric: Psychiatric: Reports no additional psychiatric complaints [facility], [facility] Past Medical History Medical History Anxiety History of ectopic No pertinent past medical history Scoliosis Surgical History Surgical History History of salpingectomy right ectopic Previous section Family History Family History Mother No pertinent family history Social History Social History Smoking status: Never smoker Alcohol intake: current Alcohol use details: occasional Substance use: never Living arrangements: with family Additional living arrangements comments: Gender identity (if verbalized by the patient): Female Sexual Orientation (if Verbalized by the Patient): Straight or Heterosexual Spiritual care concerns: No Comments At the time of my signature, I reviewed and agree with the nursing past medical, surgical, social, and family history. There is no relevant family history pertinent to the patient complaint. Exam Const: General: cooperative, healthy appearing, comfortable, no acute distress, alert, awake, Physically active, anxious and well nourished Nutritional Appearance: well nourished Orientation/consciousness: patient oriented x3 Limitations: no limitations HENMT: Head: normal to inspection Ears: external ears normal Face/Nose/Sinus: Normal external nose present, Normal nares present, normal facial exam, No erythema and No edema Face and sinus: normal facial exam, no erythema and no edema Mouth: Yes Normal oral and palatal mucosa present Eyes: General: appearance normal, both eyes and all related structures Neck: Neck: n
[2024-02-20 17:36] VITALS: BP 126/83; PULSE 81; RESP 16; TEMP 36.8; O2SAT 100
[2024-02-20 18:07] LABS: EDUAAPPEAR Clear; EDUABILI Negative (Negative); EDUABLOOD Trace (Negative); EDUACOLOR1 Yellow; EDUAGLUCOSE Negative (Negative); EDUAKETONE Negative (Negative); EDUALEUKO Negative (Negative); EDUANITRATE Negative (Negative); EDUAPROTEIN Negative (Negative); EDUAUROBILI 0.2
[2024-02-20 18:09] LABS: BEDSIDEPREGUCG Negative (Negative)
[2024-02-21 20:38] LABS: Trichomonas Vag PCR NOT DETECTED (NOT DETECTE)
[2024-02-21 20:58] LABS: Chlamydia trachomatis NOT DETECTED (NOT DETECTE); Neisseria gonorrhoeae PCR NOT DETECTED (NOT DETECTE)
== END 2024-02-20 18:35 | disposition home or self-care (01) ==
PROVIDERS: Emergency Provider Nurse Practitioner Family; PCP Family Medicine
DX: Z20.2 Contact with and (suspected) exposure to infections with a predominantly sexual mode of transmission (principal); M41.9 Scoliosis, unspecified
CPT/HCPCS: 81003; 81025; 87491; 87591; 87661; 99212; 99213; G0463

== ENCOUNTER 2024-03-13 08:19 | Emergency (ER) | payer MEDICAID, SELFPAY ==
--- NOTE | 2024-03-13 08:24 | ED.URI ---
HPI - URI/Sore Throat General Chief Complaint: Upper Respiratory Infection Stated Complaint: Sore Throat Time Seen by Provider: 03/13/24 08:32 Source: patient, RN notes reviewed and old records reviewed Mode of arrival: ambulatory Limitations: no limitations History of Present Illness HPI Narrative: 33-year-old female presents to the [facility] with complaints of a sore throat that started last night. Has felt feverish Onset (ago): day(s) (1) Treatments prior to arrival: none Related Data Allergies Allergy/AdvReac Type Severity Reaction Status Date / Time No Known Allergies Allergy Verified 03/13/24 08:35 Review of Systems Review of Systems: All systems reviewed & are unremarkable except as noted in HPI and below Constitutional: Constitutional: Reports no additional constitutional complaints Eyes: Eyes: Reports no additional eye complaints ENT: Reports as per HPI and Reports sore throat Cardiovascular: Cardiovascular: Reports no additional cardiovascular complaints, Denies chest pain and Denies dyspnea Respiratory: Respiratory: Reports no additional respiratory complaints, Denies chest congestion, Denies cough and Denies dyspnea Gastrointestinal: Gastrointestinal: Reports no additional gastrointestinal complaints, Denies abdominal pain, Denies nausea and Denies vomiting Musculoskeletal: Musculoskeletal: Reports no additional musculoskeletal complaints Integumentary/Breasts: Skin/Breast: Reports system reviewed and no additional complaints, except as docu Neurologic: Reports system reviewed and no additional complaints, except as documented Psychiatric: Psychiatric: Reports no additional psychiatric complaints Allergic/Immunologic: Allergic/Immunologic: Reports no additional allergic/immunologic complaints [facility] Past Medical History Medical History Anxiety History of ectopic No pertinent past medical history Scoliosis Surgical History Surgical History History of salpingectomy right ectopic Previous section Family History Family History Mother No pertinent family history Social History Social History Smoking status: Never smoker Alcohol intake: current Alcohol use details: occasional Substance use: never Living arrangements: with family Additional living arrangements comments: Gender identity (if verbalized by the patient): Female Sexual Orientation (if Verbalized by the Patient): Straight or Heterosexual Spiritual care concerns: No Comments At the time of my signature, I reviewed and agree with the nursing past medical, surgical, social, and family history. There is no relevant family history pertinent to the patient complaint. Exam Const: General: cooperative, healthy appearing, comfortable, no acute distress, well developed, alert and well nourished Nutritional Appearance: well nourished Orientation/consciousness: patient oriented x3 Limitations: no limitations HENMT: Head: normal to inspection Ears: hearing grossly normal bilaterally, external ears normal, TM's normal bilaterally, EAC's normal, mastoids normal and no periauricular adenopathy Face/Nose/Sinus: Normal external nose present, normal facial exam and face symmetric Face and sinus: normal facial exam and face symmetric Throat: uvula midline, abnormal tonsil bilateral erythema, exudates and hypertrophy, posterior oropharynx abnormal erythema; no cobblstoning, no edema and no exudates and uvular edema Eyes: General: appearance normal, both eyes and all related structures Alignment and Position: alignment normal Periorbital: periorbital findings normal Neck: Neck: normal visual inspection, full ROM, no lymphadenopathy and no meningeal signs Chest: Chest palpati
[2024-03-13 08:36] VITALS: BP 121/81; PULSE 113; RESP 16; TEMP 37.3; O2SAT 100
[2024-03-13 08:47] LABS: EDSTREPNEGPOS1 Positive (Negative)
== END 2024-03-13 08:53 | disposition home or self-care (01) ==
PROVIDERS: Emergency Provider Nurse Practitioner; PCP Family Medicine
DX: J02.0 Streptococcal pharyngitis (principal)
CPT/HCPCS: 87880; 99213; G0463

== ENCOUNTER 2024-03-14 13:02 | Emergency (ER) | payer MEDICAID, SELFPAY ==
[2024-03-14 13:04] VITALS: BP 132/87; PULSE 92; RESP 16; TEMP 36.8; O2SAT 100
[2024-03-14] MEDS: LACTATED RINGERS 1,000 ML 999 ML IV CONT (13:51)
--- NOTE | 2024-03-14 13:55 | ED.DIZZY ---
HPI - Dizziness General Chief Complaint: Dizziness Stated Complaint: strep problems Time Seen by Provider: 03/14/24 13:16 History of Present Illness HPI Narrative: Patient was diagnosed with strep yesterday when she went to an urgent care, she was worried because she is feeling very tired and low energy. Initially her throat was hurting badly enough that she was having pain with swallowing, she has taken 3 doses of antibiotics and overall is feeling better Related Data Allergies Allergy/AdvReac Type Severity Reaction Status Date / Time No Known Allergies Allergy Verified 03/14/24 13:07 Review of Systems Review of Systems: All systems reviewed & are unremarkable except as noted in HPI and below PMFSH Past Medical History Medical History Anxiety History of ectopic No pertinent past medical history Scoliosis Surgical History Surgical History History of salpingectomy right ectopic Previous section Family History Family History Mother No pertinent family history Social History Social History Smoking status: Never smoker Alcohol intake: current Alcohol use details: occasional Substance use: never Living arrangements: with family Additional living arrangements comments: Gender identity (if verbalized by the patient): Female Sexual Orientation (if Verbalized by the Patient): Straight or Heterosexual Spiritual care concerns: No Exam Narrative: EXAMINATION OF ORGAN SYSTEMS/BODY AREAS: Constitutional: Vital signs per nursing GENERAL:[No acute distress, non-toxic appearing.] HEAD: Normal with no signs of head trauma. EYES: EOMI, conjunctiva normal ENT: Hearing grossly intact, slightly hoarse voice but no trismus, no uvular deviation or other signs of airway compromise LUNGS: Nonlabored breathing. HEART: [Regular rate and rhythm] ABD: [Soft], [nontender to palpation] EXT: Normal range of motion SKIN: [No rashes or lesions.] NEURO: [Alert and oriented x 3. No gross focal sensory or strength deficits.] PSYCH: Normal affect Course Vital Signs Vital signs: Vital Signs Temperature 98.2 F 03/14/24 13:04 Pulse Rate 92 03/14/24 13:04 Respiratory Rate 16 10/10/24 13:04 Blood Pressure 132/87 03/14/24 13:04 Pulse Oximetry 100 03/14/24 13:04 Temperature 98.2 F 03/14/24 13:04 Pulse Rate 92 03/14/24 13:04 Respiratory Rate 16 03/14/24 13:04 Blood Pressure 132/87 03/14/24 13:04 Pulse Oximetry 100 03/14/24 13:04 MDM - Dizziness MDM Narrative Medical decision making narrative: 33-year-old female with recent diagnosis of strep presents here with slight lightheadedness and fatigue, on exam she is very well-appearing, no signs of airway compromise, I suspect symptoms from infection as well as possible dehydration as she likely has not been eating or drinking much due to her sore throat. Labs within acceptable limits other than elevated white count which is infectious from the infection, she is given IV fluids and on re-evaluation states she feels much better. She still has antibiotics at home and will finish them, have asked her to follow up with the primary care doctor for recheck and she is agreeable to this plan and return precautions discussed. Lab Data 03/14/24 13:55 03/14/24 13:55 Labs: Lab Results 03/14/24 Range/Units 13:55 WBC 15.9 H (4.5-10.0) K/mm3 RBC 4.37 (4.2-5.4) M/mm3 Hgb 14.1 (12.0-15.0) g/dL Hct 41.0 (37.0-47.0) % MCV 93.8 (80-100) fl MCH 32.3 (26-34) pg MCHC 34.4 (32-36) g/dl RDW 11.8 (11.5-14.5) % Plt Count 275 (150-375) k/mm3 MPV 9.2 (7.4-10.4) fl Immature Gran % (Auto) 0.5 (0-0.5) % Neut % (Auto) 83.9 H (45.5-
[2024-03-14 14:00] VITALS: BP 116/80; PULSE 81; RESP 18; O2SAT 99
[2024-03-14 14:02] LABS: Basophils Absolute Auto 0.1 K/mm3 (0.0-0.1); Basophils Percent Auto 0.4 % (0.2-1.2); Eosinophils Absolute Auto 0.1 K/mm3 (0-0.3); Eosinophils Percent Auto 0.4 % (0-4.4); Hemoglobin 14.1 g/dL (12.0-15.0); Immature Granulocyte Absolute 0.08 K/mm3 (0.00-0.031); Immature Granulocyte Percent A 0.5 % (0-0.5); Lymphocytes Absolute Auto 1.29 K/mm3 (0.9-3.2); Lymphocytes Percent Auto 8.1 % (18.3-44.2); Mean Corpuscular HGB Conc 34.4 g/dl (32-36); Mean Corpuscular Hemoglobin 32.3 pg (26-34); Mean Corpuscular Volume 93.8 fl (80-100); Mean Platelet Volume 9.2 fl (7.4-10.4); Monocytes Absolute Auto 1.1 K/mm3 (0.1-0.6); Monocytes Percent Auto 6.7 % (2.6-8.5); Neutrophils Absolute Auto 13.3 K/mm3 (1.3-6.7); Neutrophils Percent Auto 83.9 % (45.5-73.1); Platelet Count Result 275 k/mm3 (150-375); Red Blood Count 4.37 M/mm3 (4.2-5.4); Red Cell Distribution Width 11.8 % (11.5-14.5); White Blood Count 15.9 K/mm3 (4.5-10.0)
[2024-03-14 14:14] LABS: Anion Gap 7 mmol/L (4-12); Blood Urea Nitrogen 15 mg/dL (7-17); Calcium 8.9 mg/dL (8.4-10.2); Carbon Dioxide 30 mmol/L (22-30); Chloride 101 mmol/L (98-107); Estimated CRCL calculation 101 ml/min; Estimated Glomerular Filt Rate > 60; Glucose 104 mg/dL (65-110); Potassium 4.1 mmol/L (3.4-5.0); Sodium 138 mmol/L (137-145)
[2024-03-14 15:00] VITALS: BP 120/80; PULSE 88; RESP 20; TEMP 36.6; O2SAT 100
== END 2024-03-14 15:25 | disposition home or self-care (01) ==
PROVIDERS: Emergency Provider Emergency Medicine; PCP Family Medicine
DX: E86.0 Dehydration (principal); J02.0 Streptococcal pharyngitis
CPT/HCPCS: 36415; 80048; 85025; 96360; 99283; J7120